=== PATIENT | female | born 1975 | race Hispanic/Latino ===

== ENCOUNTER 2018-01-29 07:38 | Emergency (ER) | payer OTHER, SELFPAY ==
[2018-01-29 07:39] VITALS: BP 133/80; PULSE 71; RESP 17; TEMP 36.4; O2SAT 100; BMI 27.1
--- NOTE | 2018-01-29 08:13 | ED.VISSUMM ---
- ER Visit Summary Date of Service: 01/29/18 Chief Complaint: Atraumatic left calf pain History of Present Illness: The patient is a 42 F who has no significant past medical history and has no history of PE or DVT or any risk factors presents with atraumatic left calf pain. She denies fever, chills or night sweats. She has had weight loss secondary to change in diet and exercising. She is done nothing out of the ordinary. She is been using the elliptical. She denies chest pain of any type or shortness of breath. She denies dyspnea on exertion. She denies cough. She denies any other complaints please read written note Physical Examination: Vital signs noted and blood pressure is slightly elevated 133/80. She appears in no distress. HEENT is grossly unremarkable. Heart is regular and rate is normal. There is no evidence of respiratory distress. Examination of the left lower extremity reveals no swelling, discoloration, leg vein distention or palpable cords. There is pain along the distribution of the deep venous system on the left. DP and PT pulses are palpable. There is no rash or lesions noted. Test Results: D-dimer is less than 0.27. Emergency Department Course and Treatment: Patient well score for DVT is -1. Since she is low probability a d-dimer was obtained. If d-dimer is negative no further testing is warranted or indicated. If d-dimer is elevated will obtain venous duplex study of the left lower extremity. Differential includes gastrocnemius muscle strain versus DVT. There is no history to suggest ruptured plantaris muscle. Treatment Plan: Since d-dimer is negative, less than 0.27 no imaging is required and will treat as gastrocnemius muscle strain Disposition: Discharged to home with recommendation of ice, rest and anti-inflammatory medication since there is no contraindication Impression: Left calf pain secondary to gastrocnemius muscle strain initial encounter This note was generated with [employer] acquired by [employer] dictation software. It may contain incorrect words, spelling, and punctuation that were not noted in review of the chart prior to signing ED Disposition - Plan for ED Patient: Disposition: Home or Assisted Living Chief Complaint: Lower Extremity Injury Instructions: ED Strain Muscle Ext Referrals: Kenroy Sanabria MD [Primary Care Provider] - 10-14 Days if not better Additional Instructions: Take either 4 Advil every 8 hours or 2 Aleve every 12 hours for the next 3-5 days for discomfort. Apply ice 20-30 minutes per application 6-8 times a day for the next 3 days. Avoid activity that causes her discomfort for the next couple of days.
--- NOTE | 2018-01-29 08:16 | ED.DCSUM_ITS ---
- ER Visit Summary Date of Service: 01/29/18 Chief Complaint: Atraumatic left calf pain History of Present Illness: The patient is a 42 F who has no significant past medical history and has no history of PE or DVT or any risk factors presents with atraumatic left calf pain. She denies fever, chills or night sweats. She has had weight loss secondary to change in diet and exercising. She is done nothing out of the ordinary. She is been using the elliptical. She denies chest pain of any type or shortness of breath. She denies dyspnea on exertion. She denies cough. She denies any other complaints please read written note Physical Examination: Vital signs noted and blood pressure is slightly elevated 133/80. She appears in no distress. HEENT is grossly unremarkable. Heart is regular and rate is normal. There is no evidence of respiratory distress. Examination of the left lower extremity reveals no swelling, discoloration, leg vein distention or palpable cords. There is pain along the distribution of the deep venous system on the left. DP and PT pulses are palpable. There is no rash or lesions noted. Test Results: D-dimer is less than 0.27. Emergency Department Course and Treatment: Patient well score for DVT is -1. Since she is low probability a d-dimer was obtained. If d-dimer is negative no further testing is warranted or indicated. If d-dimer is elevated will obtain venous duplex study of the left lower extremity. Differential includes gastrocnemius muscle strain versus DVT. There is no history to suggest ruptured plantaris muscle. Treatment Plan: Since d-dimer is negative, less than 0.27 no imaging is required and will treat as gastrocnemius muscle strain Disposition: Discharged to home with recommendation of ice, rest and anti- inflammatory medication since there is no contraindication Impression: Left calf pain secondary to gastrocnemius muscle strain initial encounter This note was generated with [employer] dictation software. It may contain incorrect words, spelling, and punctuation that were not noted in review of the chart prior to signing ED Disposition - Plan for ED Patient: Disposition: Home or Assisted Living Chief Complaint: Lower Extremity Injury Instructions: ED Strain Muscle Ext Referrals: Kenroy Sanabria MD [Primary Care Provider] - 10-14 Days if not better Additional Instructions: Take either 4 Advil every 8 hours or 2 Aleve every 12 hours for the next 3-5 days for discomfort. Apply ice 20-30 minutes per application 6-8 times a day for the next 3 days. Avoid activity that causes her discomfort for the next couple of days.
[2018-01-29 09:10] LABS: D-Dimer Quantitative (DVT/PE) < 0.27 FEU/ug/m (0.27-0.49)
[2018-01-29 09:29] VITALS: RESP 14
== END 2018-01-29 09:29 | disposition home or self-care (01) ==
PROVIDERS: Emergency Provider Emergency Medicine; Family Provider Family Medicine; PCP Family Medicine
DX: S86.812A Strain of other muscle(s) and tendon(s) at lower leg level, left leg, initial encounter (principal); M79.662 Pain in left lower leg; X58.XXXA Exposure to other specified factors, initial encounter; Y93.9 Activity, unspecified; Y92.9 Unspecified place or not applicable
CPT/HCPCS: 85379; 99282